=== PATIENT | male | born 2000 | race Asian ===

== ENCOUNTER 2025-01-08 12:02 | Outpatient (REF) | payer OTHER, SELFPAY ==
--- NOTE | ~2025-01-08 | XR_ITS ---
EXAMINATION: XR LUMBOSACRAL SPINE CLINICAL INFORMATION: M54.50 - Low back pain, unspecified COMPARISON: None available. TECHNIQUE: Three views of the lumbosacral spine. FINDINGS: There are 5 nonrib-bearing lumbar segments. Disc spaces are preserved. There are no degenerative changes. There is subtle grade 1 retrolisthesis at L5-S1. XR/XR lumbar spine 2-3V IMPRESSION: L5-S1 demonstrates minimal grade 1 retrolisthesis. Electronically signed by: Anselmo Moctezuma MD 01/08/2025 01:24 PM GERMAN
== END 2025-01-08 12:03 | disposition home or self-care (01) ==
LOC: HO.HMGCX 12:02
PROVIDERS: PCP Internal Medicine; Visit Provider Physician Assistant Medical
DX: M54.50 Low back pain, unspecified (principal)
CPT/HCPCS: 72100; 99212

== ENCOUNTER 2025-01-08 12:02 | Outpatient (AMB) | payer OTHER, SELFPAY ==
--- NOTE | 2025-01-08 12:12 | AM.OFFWIN_ITS ---
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 - He states that he thinks he has a lumb ar disc injury or rupture. - The injury occurred during a gym sessi on yesterday, with a popping sensation in the lower back followed by pain. - He was doing squats when it happened. - Numbness is reported on the left side of his left foot, with no urinary or bowel incontinence. - Previous history of a bulging disc wit h similar symptoms. - Pain is rated at 3-4/10 while sitting, increasing with movement, described as nerve pain. - No pain medication taken; plans to use a heat pack. - He has been wearing a support brace to the back. - He denies saddle anesthesia, incontine nce of urine or stool, radiation of the pain, leg pain, chest pain, or SOB. - He denies dysuria, hematuria, fever, o r chills. Physical Exam General: cooperative, healthy appearing and comfortable, patient oriented x3 Head: Normal to inspection, normocephalic/atraumatic Effort & Inspection: Normal respiratory effort and able to speak in complete sentences. Cardiac: RRR, no M/R/G noted. Normal S1 and S2. Respiratory: Clear to auscultation bilaterally. No w/r/r noted. Back/spine: No CVA tenderness bilaterally. Cervical, thoracic and lumbar spine normal to inspection. Cervical ROM normal, no midline spinous tenderness noted. Decrease ROM of the spine due to pain. TTP of midline vertebral spinous processes in the lumbar region. No step offs noted. No TTP of the thoracic or lumbar paraspinous or paravertebral muscles. No SI tenderness noted. DTR are 2+ on the lower extremities noted. Ambulates with a steady gait. Extremities: Straight leg raise test negative on right; Straight leg raise test negative on left; motor strength normal 5/5 bilaterally. Neuro: Sensation intact. Patient was informed and verbally consented to the use of an ambient scribe for clinic note documentation during this visit. Review of Systems Const All systems reviewed & are unremarkable except as noted in HPI and below Physical Exam Vital Signs: Last Vital Signs Temp 97.9 F 01/08/25 12:13 Pulse 83 01/08/25 12:13 BP 118/72 01/08/25 12:13 Pulse Ox 98 01/08/25 12:13 Oxygen Delivery Method Room Air 01/08/25 12:13 BMI result Body Mass Index 29.7 Assessment & Plan Assessment & Plan (1) Low back pain: Code(s): M54.50 - Low back pain, unspecified Qualifiers: Chronicity: acute Back pain laterality: midline Sciatica presence: without sciatica Qualified Code(s): M54.50 - Low back pain, unspecified Plan Most likely strain vs disc herniation vs radiculopathy vs sciatica Plan - An x-ray of the lumbar spine will be conducted to evaluate for structural issues. - Referral to primary care for MRI consideration, as urgent care cannot facilitate MRI orders. - Prescription of a muscle relaxant for pain management. - activities as tolerated - no heavy lifting - follow up with PCP Orders: Orders XR lumbar spine 2-3V Today M54.50 - Low back pain, unspecified Medications: New cyclobenzaprine 5 mg PO Q8H PRN 20 tabs 0RF Muscle Spasm naproxen 500 mg PO Q12H PRN 20 tabs 0RF pain 7 days Coding Level of Care Code Est Pt Level 4 (18414) Diagnoses Acute midline low back pain without sciatica M54.50 Chronicity: acute Back pain laterality: midline Sciatica presence: without sciatica
[2025-01-08 12:13] VITALS: BP 118/72; PULSE 83; TEMP 36.6; O2SAT 98; BMI 29.7
--- OUTSIDE RECORDS SUMMARY | 2025-01-08 14:00 | XMS_ITS | Encounter Summary ---
Author Organization [facility] Address [address] [place] [address] Care Team Providers Care Cloth Roll Winder Name Role Phone Michele Moscoso MD Primary Care Provider Reason for Visit * Reason Onset Date Comments Back Pain 01/08/2025 Encounter Details Date Type Department Care Team ([facility] Contact Info) Description 01/08/2025 Telephone Adult Medicine [facility] [address] [place] [phone] Michele Moscoso MD [address] [place] [address] Social History Tobacco Use Types Packs/Day Years Used Date Smoking Tobacco: Never Assessed Sex and Gender Information Value Date Recorded Sex Assigned at Not on file Legal Sex Male 11:23 AM EST Gender Identity Not on file Sexual Orientation Not on file documented as of this encounter Progress Notes * Gayle Adriano - 01/08/2025 11:34 AM EST Patient call requires triage: Symptoms patient is presenting: Lower back pain. How long has patient had these symptoms?: 1 day For ALL patients calling to schedule any appointment (routine, sick visit, follow up, consult, etc.) in the outpatient setting please ask the following questions: Do you have fever of higher than 101, sore throat with difficulty swallowing or severe shortness ofbreath? no If YES to any of these above symptoms, send a message to triage and do not book. Red dot. If no, an audio or video visit should be booked. Have you had close contact with someone with Coronavirus in the last 14 days? no Have you traveled abroad? no Have you traveled recently to another state outside of [place], [place], [place], [place], [place], [place], [place]? no o If yes, did you quarantine for 14 days or have a negative covid test? no If yes to any of the above, patient is not to be scheduled in office until after 14 day quarantine or negative covid test. If pain or injury related was it due to an accident at work or from a motor vehicle accident? If yes, date of accident/Injury: No If yes, gather 3rd constitution party insurance information Third Constitution Party Information: not applicable PCP: Michele Moscoso MD Payor: [employer] HUMANA / Plan: [employer] PRIME / Product Type: *No Product type* / documented in this encounter Plan of Treatment Upcoming Encounters Date Type Department Care Team (Late st Contact Info) Description 08/14/2025 11:00 AM EDT Office Visit Adult Medicine [facility] [address] [place] [phone] Michele Moscoso MD [address] [place] [address] documented as of this encounter Visit Diagnoses Not on filedocumented in this encounter Care Teams Cloth Roll Winder Relationship Specialty Start Date End Date Michele Moscoso MD [address] [place] [address] PCP - General Internal Medicine 01/08/25 documented as of this encounter
--- OUTSIDE RECORDS SUMMARY | 2025-01-08 14:00 | XMS_ITS | Clinical Summary ---
Author Organization [facility] [address] [place] [address] Address [address] [place], [place] Phone Care Team Providers Care Web Applications Architect Name Role Phone Michele Moscoso MD Primary Care Provider [phone] Encounters Date Type Department Care Team Description 01/08/2025 Telephone Adult [facility] [address] [place] [phone] Michele Moscoso MD from Last 3 Months Social History Tobacco Use Types Packs/Day Years Used Date Smoking Tobacco: Never Assessed Sex and Gender Information Value Date Recorded Sex Assigned at Not on file Legal Sex Male 11:23 AM EST Gender Identity Not on file Sexual Orientation Not on file Plan of Treatment Upcoming Encounters Date Type Department Care Team (Late st Contact Info) Description 08/14/2025 11:00 AM EDT Office Visit Adult [address] [phone] Michele Moscoso MD [address] [place], [place] Health Maintenance Due Date Last Done Comments HPV Vaccines (1 - Male 3-dos e series) 2014 DTaP,Tdap,and Td Vaccines (1 - Tdap) 2018 Hepatitis B Vaccines (1 of 3 - 19+ 3-dose series) 2018 Depression Screening 02/29/2024 COVID-19 Vaccine (1 - 2024-2 6 season) 2024 Influenza Vaccine (#1) 2024 HIV Screening 01/08/2025 Hepatitis C Screening 01/08/2025 Social Influencers of Health Screening 01/08/2025 RSV Immunization Adult Patie nts (1 - 1-dose 75+ series) 2074 HIB Vaccines Aged Out No longer eligi ble based on patient's age to complete this topic Hepatitis A Vaccines Aged Out No long er eligible based on patient's age to complete this topic IPV Vaccines Aged Out No longer eligi ble based on patient's age to complete this topic MMR Vaccines Aged Out No longer eligi ble based on patient's age to complete this topic Meningococcal ACWY Vaccine Aged Out N o longer eligible based on patient's age to complete this topic Meningococcal B Vaccine Aged Out No l onger eligible based on patient's age to complete this topic Pneumococcal Vaccine: Pediat rics (0 to 5 Years) and At-Risk Patients (6 to 49 Years) Aged Out No longer eligible b ased on patient's age to complete this topic RSV Immunization Patients Un mihaela 20 months Aged Out No longer eligible b ased on patient's age to complete this topic Varicella Vaccines Aged Out No longer eligible based on patient's age to complete this topic Insurance [address] [id number] [facility] Care Teams Web Applications Architect Relationship Specialty Start Date End Date Michele Moscoso MD [address] [place] [phone] PCP - General Internal Medicine 01/08/25
== END 2025-01-08 13:08 | disposition home or self-care (01) ==
PROVIDERS: Visit Provider Physician Assistant Medical
DX: M54.50 Low back pain, unspecified (principal)

== ENCOUNTER → 2025-01-08 13:01 | Outpatient (BNV) | payer OTHER, SELFPAY | PROVIDERS: PCP Internal Medicine; Visit Provider Radiology Diagnostic Radiology | DX: M54.50 Low back pain, unspecified (principal) | CPT/HCPCS: 72100 ==

== ENCOUNTER 2025-01-09 15:16 | Emergency (ER) | payer OTHER, SELFPAY ==
[2025-01-09 15:26] VITALS: BP 140/86; PULSE 93; RESP 16; TEMP 36.8; O2SAT 98; BMI 28.7
--- NOTE | 2025-01-09 16:16 | ED.BACK ---
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 Last Tuesday he noticed stiffness in his lower back while at work. He rested over the weekend and did not go to the gym. On Tuesday, while stretching and rising from a position, he felt a distinct ?pop? in his low back followed by pain. He was evaluated at an urgent care where lumbar spine X-rays showed retrolisthesis; he was given naproxen and cyclobenzaprine and advised to follow up with a PCP. Having recently moved, he has not yet established local primary care and presents today requesting an MRI. Provider explained MRI indications (only for neuro-compromise in ED; otherwise ordered by orthopedics after failed PT). Denies IV drug use, history of cancer, chronic steroid use, or bowel/bladder incontinence. Currently wearing a lumbar brace. Reports difficulty ambulating without pain. Related Data Home Medications ?Medication ?Instructions ?Recorded ?Confirmed omega 2-gvf-nsp-fish oil 1,000 mg 1 cap PO DAILY 01/08/25 (120 mg-180 mg) capsule (Fish Oil) vitamin D3 1,250 mcg (50,000 cap PO 01/08/25 unit)-vitamin K2 200 mcg capsule Previous Rx's ?Medication ?Instructions ?Recorded cyclobenzaprine 5 mg tablet 5 mg PO Q8H PRN Muscle Spasm #20 01/08/25 tabs naproxen 500 mg tablet 500 mg PO Q12H PRN pain 7 days #20 01/08/25 tabs Allergies Allergy/AdvReac Type Severity Reaction Status Date / Time No Known Allergies Allergy Verified 01/09/25 15:27 Review of Systems Review of Systems: Yes all other systems are reviewed and are negative PMFSH Past Medical History Attestation statement: The following information was validated with the patient. Source: old records reviewed and nursing notes reviewed Social History Social History Unable to assess alcohol history related to: Unknown Smoked in Last 30 Days: No Use of substances other than those prescribed or required for medical reasons: Unknown Advance Directives: No Advance Directives Information Provided: Yes Physical Exam Vital Signs: Vital Signs: Last Vital Signs Temp 98.3 F 01/09/25 16:27 Pulse 93 01/09/25 16:27 Resp 16 01/09/25 16:27 BP 140/86 H 01/09/25 16:27 Pulse Ox 98 01/09/25 16:27 O2 Del Method Room Air 01/09/25 16:27 BMI result Body Mass Index 28.7 Const: General: cooperative, healthy appearing, comfortable, no acute distress, well developed and well groomed Nutritional Appearance: average body habitus Orientation/consciousness: patient oriented x3 HEENT: Head: Yes normal to inspection : General: Yes no CVA tenderness Back/Spine/Pelvis: Back: no CVA tenderness Cervical Spine: normal cervical lordosis and cervical ROM normal Thoracic/Lumbar Spine: thoracic and lumbar spine normal to inspection, straight leg raise negative bilaterally and thoraco-lumbar ROM limited with forward flexion (20 degrees, able to sit with hips flexed to 90 degrees, changes position without difficulty observed) Pelvis: no pain with anterior-posterior compression and no pain with lateral compression Skin: General skin exam: no rashes or lesions noted and elasticity normal Neuro: General: patient oriented x3 Medical Decision Making Medical Decision Making MDM Narrative: Patient presented to the emergency department today for concerns of recent outpatient xray results and limited ROM of low back. history and physical as above vitals noted This patient presents with back pain most consistent with muscle spasm with irritation of HNP. Differential diagnoses includes lumbago versus musculoskeletal spasm / strain versus sciatica. No back pain red flags on history or physical. Presentation not consistent with malignancy (lack of history of malignancy, lack of B symptoms), fracture (no trauma, no bony tenderness to palpation), cauda equina (no bowel or urinary incontinence/retention, no saddle anesthesia, no distal weakness), AAA, viscus perforation , pulmonary embolism, renal colic, pyelonephritis (afebrile, no CVAT, no urinary symptoms). Given the clinical picture, no indication for imaging at this time. Patient already has script for Naproxen and flexeril not yet taken. Plan: Provide orthopedic referral information; patient to schedule outpatient follow-up. Guidelines recommend outpatient referral and conservative management for lumbar disc herniation without neurological red flags MRI is deferred until after failed conservative therapy for which he has not yet trialed. And as stated above as there is no red flag features an emergent MRI is not indicated. Activity modification: no bending, lifting, pushing, or pulling >20 lbs; work note provided for at least 1 week. Encouraged ambulation as tolerated; avoid prolonged sitting (>1 hour) and use lumbar support when seated. Sleep hygiene: side-lying with knees bent and pillow between legs to maintain hip/knee/foot alignment. Continue naproxen and cyclobenzaprine as previously prescribed by urgent care; patient confirms current use. Education provided regarding indications for emergent evaluation (new weakness, numbness, bowel/bladder changes). Lifestyle modifications discussed, light duty assigned for work. patient demonstrated verbal understanding of this plan and was discharged home stable Differential Diagnosis Differential Diagnoses: The differential diagnosis associated with the presentation includes See MDM Admission/Observation Consideration of admission/observation: Escalation of care including admission/observation considered Patient would have been admitted to the hospital had his work up had any findings where hospital admission was appropriate and his clinical presentation warranted hospital admission. External Record Review External record reviewed: Prior outpatient radiology (patient portal pulled up on patient's phone with him and discussed) Tests considered The following testing was considered but not selected: would have considered MRI spine for red flags, no present, would have considered xray of L spine had pain been present > 6 week or in setting of trauma, midline tenderness Prescription Management I considered prescription management with: Other Social Determinants Patient?s care significantly limited by Social Determinants of Health including: Other Social Determinant of Health Discharge Plan Discharge Clinical Impression: Retrolisthesis, Acute lumbar myofascial strain Patient Disposition: Home, Self-Care Additional Instructions: You were evaluated for lower back pain. As you do not have any signs/symptoms of neurovascular compromise, an emergent MRI was not indicated. Your symptoms are consistent with a lower back strain/spasm with a pinched nerve. BACK CARE Use Motrin/Advil (ibuprofen) 600 mg every 6 hours. Take this with food. Take this regularly for the next 3-5 days and then as needed. DO not take this while taking your naproxen. You would benefit from physical therapy, call orthopedics to schedule an appt with them. In addition, You can use Tylenol (acetaminophen) 650 mg every 6 hrs as needed for pain. ?Do not take more than 3000 mg in one day! Use intermittent heat 4 or 5 times a day, 20 minutes at a time, ?for a few days. You may use topical therapy such as IcyHot with Lidocaine or Aspercream with Lidocaine, both of which are available over the counter. Do not perform any heavy lifting. Return immediately to the Emergency Department if you develop any increased or uncontrolled pain, numbness, tingling, or weakness of the extremities, difficulty urinating or passing stools. Prescriptions: No Action omega 3-yyj-eop-fish oil [Fish Oil] 1,000 (120-180) mg capsule 1 cap PO DAILY vitamin D3-vitamin K2 1,250-200 mcg capsule PO naproxen 500 mg tablet 500 mg PO Q12H PRN (Reason: pain) 7 Days Qty: 20 0RF cyclobenzaprine 5 mg tablet 5 mg PO Q8H PRN (Reason: Muscle Spasm) Qty: 20 0RF Referrals: [facility] [Provider Group] Referral Note: consider PT referral Clinical Impression: Retrolisthesis; Acute lumbar myofascial strain Stand Alone Forms: Work/School Release Interventions: ED Discharge Assessment Last Done: 01/09/25 16:27 Discharge Date/Time: 01/09/25 16:27 Print Language: Gambian
[2025-01-09 16:27] VITALS: BP 140/86; PULSE 93; RESP 16; TEMP 36.8; O2SAT 98
--- OUTSIDE RECORDS SUMMARY | 2025-01-09 18:42 | XMS_ITS | Clinical Summary ---
Author Organization [facility] [address] [place] [address] Address [address] [place], [place] Phone Care Team Providers Care Sheeter Waxer Operator Name Role Phone Michele Moscoso MD Primary Care Provider Encounters Date Type Department Care Team Description 01/08/2025 Telephone Adult [facility] [address] [place] [phone] Michele Moscoso MD from Last 3 Months [...] 08/14/2025 11:00 AM EDT Office Visit Adult [address] [phone] Michele Moscoso MD [address] [place], [place] Health Maintenance Due Date Last Done [...] patient's age to complete this topic Insurance [facility] Care Teams Sheeter Waxer Operator Relationship Specialty Start Date End Date Michele Moscoso MD [address] [place] [place] [phone] PCP - General Internal Medicine 01/08/25
--- OUTSIDE RECORDS SUMMARY | 2025-01-09 18:42 | XMS_ITS | Encounter Summary ---
Author Organization [facility] Address [address] [place] [address] Care Team Providers Care Paper And Pulp Mill Worker Name Role Phone Michele Moscoso MD Primary Care Provider Reason for Visit * Reason Onset Date Comments Back Pain 01/08/2025 Encounter Details Date Type Department Care Team ([facility] Contact Info) Description 01/08/2025 Telephone Adult Medicine [facility] [address] [place] [phone] Michele Moscoso MD [address] [place] [address] Social History Tobacco Use Types Packs/Day Years Used Date Smoking Tobacco: Never Assessed Sex and Gender Information Value Date Recorded Sex Assigned at Not on file Legal Sex Male 11:23 AM EST Gender Identity Not on file Sexual Orientation Not on file documented as of this encounter Progress Notes * Monique Ruiz RN - 01/08/2025 2:38 PM EST Call to pt. Left message for pt to call triage * Gayle Oh - 01/08/2025 11:34 AM EST Patient call [...] traveled recently to another state outside of [place], [place], [place], [place], [place], [place], [place]? no o If yes, did you [...] of accident/Injury: No If yes, gather 3rd democrat insurance information Third Libertarian Information: not applicable PCP: Michele Moscoso MD Payor: [employer] / Plan: [employer] PRIME / Product Type: *No Product type* / documented in this encounter Plan of Treatment Upcoming Encounters Date Type Department Care Team (Late st Contact Info) Description 08/14/2025 11:00 AM EDT Office Visit Adult Medicine [facility] [address] [place] [phone] Michele Moscoso MD [address] [place] [address] documented as of this encounter Visit Diagnoses Not on filedocumented in this encounter Care Teams Paper And Pulp Mill Worker Relationship Specialty Start Date End Date Michele Moscoso MD [address] [place] [address] PCP - General Internal Medicine 01/08/25 documented as of this encounter
== END 2025-01-09 16:27 | disposition home or self-care (01) ==
PROVIDERS: Emergency Provider Emergency Medicine
DX: M43.16 Spondylolisthesis, lumbar region (principal); S39.012A Strain of muscle, fascia and tendon of lower back, initial encounter; X58.XXXA Exposure to other specified factors, initial encounter; Y93.9 Activity, unspecified; Y92.9 Unspecified place or not applicable; Y99.9 Unspecified external cause status
CPT/HCPCS: 99282; 99284